=== PATIENT | female | born 1995 | race African-American/Black ===

== ENCOUNTER 2019-12-26 23:02 | Emergency (ER) | payer SELFPAY ==
[2019-12-27] MEDS ORDERED: ACETAMINOPHEN 325 MG TABLET PO ONE (06:15)
[2019-12-27] MEDS ORDERED: IBUPROFEN 800 MG TABLET PO ONE (07:48)
[2019-12-27] MEDS ORDERED: PENICILLIN V POTASSIUM 500 MG TABLET PO ONE (07:48)
[2019-12-27 07:55] VITALS: BP 139/87
--- NOTE | 2019-12-27 14:02 | ER Document Report ---
Entered by JONNIE HDEZ SCRIBE 12/27/19 0737 Acting as scribe for:BRIELLE MCKAY MD ED Oral Problem - General Chief Complaint: Toothache Stated Complaint: TOOTH PAIN Time Seen by Provider: 12/27/19 07:29 Mode of Arrival: Ambulatory Information source: Patient Notes: This 24 year old female patient presents to the emergency department today with complaints of two chipped teeth with associated pain which began one week ago. Patient indicates the bad teeth are in the upper left part of her mouth. - Related Data Allergies/Adverse Reactions: No Known Allergies Allergy (Unverified 12/27/19 06:13) Past Medical History - General Information source: Patient - Social History Smoking Status: Never Smoker Cigarette use (# per day): No Frequency of alcohol use: None Drug Abuse: None Lives with: Family Family History: Reviewed & Not Pertinent Patient has homicidal ideation: No - Medical History Medical History: Negative Surgical Hx: Negative Review of Systems - Review of Systems Constitutional: No symptoms reported EENT: See HPI, Mouth pain, Mouth swelling, Dental problem Cardiovascular: No symptoms reported Respiratory: No symptoms reported Gastrointestinal: No symptoms reported Genitourinary: No symptoms reported Female Genitourinary: See HPI, Last menstrual period - 12/20/19 Musculoskeletal: No symptoms reported Skin: No symptoms reported Hematologic/Lymphatic: No symptoms reported Neurological/Psychological: No symptoms reported -: Yes All other systems reviewed and negative Physical Exam - Vital signs Vitals: Temp Pulse BP Pulse Ox 98.8 F 95 189/118 H 99 12/26/19 23:06 12/26/19 23:06 12/26/19 23:06 12/26/19 23:06 - Notes Notes: Physical Exam: General: Alert, appears well. HEENT: Normocephalic. Atraumatic. PERRLA. Extraocular movements intact. Oropharynx clear. Left upper 1st molar posterior half is broken and decayed, no gum abnormalities. Left upper lateral incisor is broken and hollowed out with surrounding gum swelling. There are no abscesses. Neck: Supple. Respiratory: No respiratory distress. Abdominal: Morbidly obese. No distension. Extremities: Moves all four extremities. Neurological: Normal cognition. AAOx4. Normal speech. Psychological: Normal affect. Normal Mood. Skin: Warm. Dry. Normal color. Course - Vital Signs Vital signs: Temp Pulse Resp BP Pulse Ox 98.0 F 97 16 139/87 H 98 12/27/19 07:54 12/27/19 07:54 12/26/19 23:08 12/27/19 07:54 12/27/19 07:54 Discharge - Discharge Clinical Impression: Dental decay, Toothache Condition: Stable Disposition: HOME, SELF-CARE Additional Instructions: Toothache Your pain is due to dental decay. The tooth must be repaired in order for you to feel better. You will, therefore, be referred to a dentist. Severe swelling or drainage around a tooth usually means a deep dental abscess. This also requires evaluation and treatment by the dentist, but antibiotics may be prescribed while awaiting dental treatment. You should be rechecked immediately if you develop major swelling of the face, increasing pain, a lump in the jaw or gums, headache, or fever. Take the medication as prescribed. Try using Fix-A-Tooth to fill in the cavities in the teeth until you can see your dentist. Follow-up with a dentist within the next week. RETURN TO THE EMERGENCY ROOM IF ANY NEW OR WORSENING SYMPTOMS. Prescriptions: Penicillin V Potassium [Penicillin Vk 500 mg Tablet] 500 mg PO QID #28 tablet I personally performed the services described in the documentation, reviewed and edited the documentation which was dictated to the scribe in my presence, and it accurately records my words and actions.
== END 2019-12-27 08:04 | disposition home or self-care (01) ==
LOC: ER 23:02
DX: K02.9 Dental caries, unspecified (principal); K08.89 Other specified disorders of teeth and supporting structures; S02.5XXA Fracture of tooth (traumatic), initial encounter for closed fracture; X58.XXXA Exposure to other specified factors, initial encounter
CPT/HCPCS: 99283